=== PATIENT | female | born 1990 | race Caucasian/White ===

== ENCOUNTER 2016-11-18 18:46 | Inpatient (IN) | payer MEDICAID, OTHER ==
[~2016-11-18] VITALS: Ht 167.6 cm; Wt 86.2 kg
[2016-11-18 19:45] VITALS: BP 152/104; PULSE 90
[2016-11-18] MEDS ORDERED: ONDANSETRON HCL 4 MG/2 ML VIAL IV PRN (19:45)
[2016-11-18] MEDS ORDERED: NIFEdipine 10 MG CAP PO PRN ×3 (19:45→20:30)
[2016-11-18] MEDS ORDERED: MAGNESIUM SULFATE 4 GM PREMIX 100 ML IV ONE (19:45)
[2016-11-18] MEDS ORDERED: CALCIUM GLUCONATE 10% 1 GM/10 ML VIAL IV PUSH PRN (19:45)
[2016-11-18] MEDS ORDERED: SODIUM CHLORIDE 0.9% FLUSH 5 ML FLUSH IV PRN (19:45)
[2016-11-18 20:00] VITALS: BP 148/88; PULSE 91
[2016-11-18] MEDS: LABETALOL HCL 300 MG TAB PO SCH (20:00)
[2016-11-18] MEDS: LACTATED RINGER'S 1000 ML INJ 1,000 ML IV SCH (20:00)
[2016-11-18 20:17] VITALS: BP 131/68; PULSE 78
[2016-11-18 20:17] LABS: AUTOMATED NEUTROPHIL # 6.5 TH/MM3 (1.8-7.7); BASOPHIL % 0.3 % (0.0-2.0); EOSINOPHIL % 8.3 % (0.0-4.0); HEMATOCRIT 36.5 % (35.0-46.0); HEMO FLAGS DIFF FINAL; LYMPH % 28.5 % (9.0-44.0); LYMPHOCYTE # 3.3 TH/MM3 (1.0-4.8); MEAN CELL VOLUME 77.8 FL (80.0-100.0); MEAN CORPUSCULAR HEMOGLOBIN 25.9 PG (27.0-34.0); MEAN CORPUSCULAR HGB CONC 33.3 % (32.0-36.0); MONO % 6.7 % (0.0-8.0); NEUT % 56.2 % (16.0-70.0); PLATELET COUNT 219 TH/MM3 (150-450); RED BLOOD COUNT 4.69 MIL/MM3 (4.00-5.30); WHITE BLOOD COUNT 11.5 TH/MM3 (4.0-11.0)
[2016-11-18 20:32] LABS: ANION GAP 9 MEQ/L (5-15); AST (GOT) 13 U/L (15-37); BICARBONATE 22.1 MEQ/L (21.0-32.0); BLOOD UREA NITROGEN 8 MG/DL (7-18); CHLORIDE 108 MEQ/L (98-107); GLOMERULAR FILTRATION RATE 107 ML/MIN (>89); POTASSIUM 3.8 MEQ/L (3.5-5.1); SODIUM (NA) 139 MEQ/L (136-145); URIC ACID 6.2 MG/DL (2.6-6.0)
[2016-11-18 20:35] LABS: ALKALINE PHOSPHATASE 157 U/L (45-117); ALT (GPT) 17 U/L (10-53); TOTAL BILIRUBIN ADULT 0.2 MG/DL (0.2-1.0)
[2016-11-18] MEDS ORDERED: ACETAMINOPHEN 325 MG TAB PO PRN (20:45)
[2016-11-18 20:58] LABS: BACTERIA, URINE OCC /hpf; BLOOD, URINE NEG (NEG); COMMENT (UR) CULT NOT INDICATED; CULTURE IF INDICATED CULT NOT INDICATED; GLUCOSE,URINE NEG (NEG); HYALINE CAST, URINE 1 /lpf (RARE); KETONE, URINE NEG (NEG); MUCUS URINE FEW /lpf (OCC); NITRITE,URINE NEG (NEG); SQUAMOUS EPITHELIAL CELL URINE 2 /hpf (0-5); URINE COLOR LIGHT-YELLOW (YELLW/STRAW)
[2016-11-18] MEDS: SODIUM CHLORIDE 0.9% FLUSH 5 ML FLUSH IV SCH (21:00)
--- NOTE | 2016-11-18 21:09 | HHI.HP ---
HPI Chief Complaint Headaches, increased blood pressure, rule out preeclampsia Date Seen: Nov 18, 2016 Time Seen: 18:20 Travel History International Travel<30 Days: No Contact w/Intl Traveler<30Days: No Known Affected Area: No History of Present Illness HPI 26-year-old at 37 weeks and 5 days of gestation, EDC 12/04/16, patient was sent to labor and delivery by the customer sales consultant for evaluation of increased blood pressure noted in the office today and to rule out preeclampsia. Patient was seen in the office today by the customer sales consultant during which time blood pressure was noted to be 150/102, associated with severe headaches( pain score 8/10), patient denies blurry vision, visual disturbances, and epigastric pain. Patient denies cramping, contractions, leakage of fluids, vaginal bleeding. She reports presence of movements. care is with [facility] WOODWARD, course is significant for gestational hypertension and headaches. Evaluation in OB ED shows blood pressure 152/102, 149/109, 160/96, 15 . Patient complaining of headaches, denies blurry vision, and epigastric pain Para: 0 : 1 Miscarriage: 0 : 0 History Past Medical History Narrative Medical Denies Medical History: Denies Significant Hx Obstetric History Obstetric History Primigravida Past Surgical History Narrative Surgical Denies Family History Narrative Family History Mother with diabetes, father with hypertension. Social History Alcohol Use: No Tobacco Use: No Substance Abuse: No Allergies-Medications (Allergen,Severity, Reaction): Coded Allergies: No Known Allergies (Unverified , 11/18/16) Review of Systems Except as stated in HPI: all other systems reviewed are Neg HENT: Headaches Cardiovascular: Other (increased blood pressure) Physical Exam Narrative GENERAL: Well-nourished, well-developed patient. SKIN: Warm and dry. HEAD: Normocephalic and atraumatic. EYES: No scleral icterus. No injection or drainage. ENT: No nasal drainage noted. Mucous membranes pink. Airway patent. NECK: Supple, trachea midline. No JVD. CARDIOVASCULAR: Regular rate and rhythm without murmurs, gallops, or rubs. RESPIRATORY: Breath sounds equal bilaterally. No accessory muscle use. BREASTS: Bilateral exam showed no masses , no retractions, no nipple discharge. ABDOMEN/GI: Abdomen soft, gravid, non-tender, bowel sounds present, no rebound, no guarding Gravid to 38 weeks size Fundal Height: 38 cm GENITOURINARY: External Genitalia: intact and normal in appearance BUS glands: Normal Cervix: Fingertip, long, posterior Dilatation: Fingertip Effacement: 50% Station: -3 Presentation: Cephalic Membranes: Intact Uterine Contractions: None FHT's: Category: one Baseline: 150s Reactive: Yes Variability: Moderate Decels: None EXTREMITIES: No cyanosis or edema. BACK: Nontender without obvious deformity. No CVA tenderness. NEUROLOGICAL: Awake and alert. Motor and sensory grossly within normal limits. Five out of 5 muscle strength in all muscle groups. Normal speech. Data Data Vital Signs Reviewed: Yes Orders Place In Observation (11/18/16 ) Code Status (11/18/16 19:44) Vital Signs (Adult) Q5MX4,Q15MX4,Q30MX2,Q1H (11/18/16 19:44) Resp Pulse Oximetry (11/18/16 ) Activity Bed Rest (11/18/16 19:44) Intake + Output Q1H (11/18/16 19:44) ^ Notify Parameters (11/18/16 19:44) ^ Heart CONTINUOUS (11/18/16 19:44) Urinary Catheter Management RAMONA.Q8H (11/18/16 19:44) ^ Check Deep Tendon Reflexes Q1H (11/18/16 19:44) Lactated Ringer's 1000 Ml Inj (Lr 1000 M (11/18/16 20:00) Sodium Chloride 0.9% Flush (Ns Flush) (11/18/16 19:45) Sodium Chloride 0.9% Flush (Ns Flush) (11/18/16 21:00) Magnesium Sulfate 40 Gm Premix (Magnesiu (11/18/16 19:44) Nifedipine (Procardia) (11/18/16 19:45) Nifedipine (Procardia) (11/18/16 20:15) Nifedipine (Procardia) (11/18/16 20:30) Calcium Gluconate Inj (Calcium Gluconate (11/18/16 19:45) Ondansetron Inj (Zofran Inj) (11/18/16 19:45) Dxybmkdk-Ykj-Cmkzs-Iron Prenat (Stuartna (11/18/16 19:45) Comprehensive Metabolic Panel (11/18/16 19:44) Uric Acid (11/18/16 19:44) Total Protein 24hr Urine (11/18/16 19:44) Creatinine 24 Hr Urine (11/18/16 19:44) Magnesium Sulfate 4 Gm Premix (Magnesium (11/18/16 19:45) ^ Oil And Gas Superintendent / Telemetry (11/18/16 19:44) Complete Blood Count With Diff (11/18/16 19:48) Urinalysis - C+S If Indicated (11/18/16 19:48) Protein Creat Ratio, Random Ur (11/18/16 19:48) Ldh Serum (11/18/16 19:48) Labetalol (Trandate) (11/18/16 20:00) Ob (2e) Additional Admit Info (11/18/16 19:51) Equip, Iv Pump Triple Use Of (11/18/16 19:54) Acetaminophen (Tylenol) (11/18/16 20:45) Diet Regular Basic (11/18/16 Dinner) Labs Laboratory Tests Test 11/18/16 11/18/16 19:29 19:54 Urine Color LIGHT-YELLOW Urine Turbidity HAZY Urine pH 7.0 Urine Specific [place] 1.012 Urine Protein 30 Urine Glucose (UA) NEG Urine Ketones NEG Urine Occult Blood NEG Urine Nitrite NEG Urine Bilirubin NEG Urine Urobilinogen LESS THAN 2.0 Urine Leukocyte Esterase MOD Urine WBC 3 Urine Squamous Epithelial 2 Cells Urine Bacteria OCC Urine Hyaline Casts 1 Urine Mucus FEW Microscopic Urinalysis Comment CULT NOT INDICATED Urine Random Creatinine 61 Urine Random Total Protein 61 Urine Protein/Creatinine Ratio 1.00 White Blood Count 11.5 Red Blood Count 4.69 Hemoglobin 12.2 Hematocrit 36.5 Mean Corpuscular Volume 77.8 Mean Corpuscular Hemoglobin 25.9 Mean Corpuscular Hemoglobin 33.3 Concent Red Cell Distribution Width 16.0 Platelet Count 219 Mean Platelet Volume 10.0 Neutrophils (%) (Auto) 56.2 Lymphocytes (%) (Auto) 28.5 Monocytes (%) (Auto) 6.7 Eosinophils (%) (Auto) 8.3 Basophils (%) (Auto) 0.3 Neutrophils # (Auto) 6.5 Lymphocytes # (Auto) 3.3 Monocytes # (Auto) 0.8 Eosinophils # (Auto) 1.0 Basophils # (Auto) 0.0 CBC Comment DIFF FINAL Differential Comment Sodium Level 139 Potassium Level 3.8 Chloride Level 108 Carbon Dioxide Level 22.1 Anion Gap 9 Blood Urea Nitrogen 8 Creatinine 0.67 Estimat Glomerular Filtration 107 Rate Random Glucose 67 Uric Acid 6.2 Calcium Level 9.2 Total Bilirubin 0.2 Aspartate Amino Transf 13 (AST/SGOT) Alanine Aminotransferase 17 (ALT/SGPT) Alkaline Phosphatase 157 Lactate Dehydrogenase 157 Total Protein 6.6 Albumin 2.6 Assessment/Plan Problem List: (1) Pre-eclampsia in third trimester (2) Gestational hypertension affecting third Assessment and Plan Term at 37 weeks and 5 days of gestation with possible preeclampsia, reassuring heart status. GBS unknown. 1.Probable preeclampsia: * We'll start magnesium sulfate for seizure prophylaxis * Will treat blood pressure with antihypertensives * Wash for signs and symptoms of preeclampsia * Monitor blood pressure * We'll start collection of 24-hour urine for proteins and creatinine * Tylenol for headaches * Consider induction of labor if preeclampsia is confirmed by 24-hour urine 2. at 37 weeks plus. * Routine antepartum care * Continue vitamins Discharge Planning Will discharge when management is accomplished Brian Ortiz MD Nov 18, 2016 21:09
[2016-11-18] MEDS: MAGNESIUM SULFATE 40 GM PREMIX 1,000 ML IV SCH (21:10)
[2016-11-18 23:01] VITALS: BP 129/66; PULSE 78; RESP 18
[2016-11-19] VITALS (17 sets, daily range): BP systolic 107–159; BP diastolic 68–90; PULSE 72–100; RESP 18; TEMP 98.3–98.4
[2016-11-19] MEDS: LACTATED RINGER'S 1000 ML INJ 1,000 ML IV SCH ×2 (02:00→12:00)
[2016-11-19] MEDS: MULTIVIT/MIN/PREN/FOL AC/IRON PRENATAL TAB PO SCH (08:02)
[2016-11-19] MEDS: LABETALOL HCL 300 MG TAB PO SCH ×2 (08:02→20:00)
--- NOTE | 2016-11-19 10:19 | PD.LABORPN ---
Subjective Subjective 26-year-old at 37 weeks and 6 days of gestation, EDC 12/04/16, patient was sent to labor and delivery by the internet marketing executive for evaluation of increased blood pressure noted in the office today and to rule out preeclampsia. care is with [facility] WOODWARD, course is significant for gestational hypertension and headaches. Evaluation in OB ED shows blood pressure 152/102, 149/109, 160/96, 151/87. Patient complaining of headaches, denies blurry vision, and epigastric pain Monday 11/19: Random urine protein of 61 mg, protein/creatinine 1.0. With elevated pressures, meeting criteria for preeclampsia. Being at 37 weeks I would proceed with induction of labor. She continues to having light sensitivity , but denies any new headaches, CP, epigastric discomfort, decreased FM or vaginal bleeding. Objective Vital Signs Vital Signs Date Time Temp Pulse Resp B/P Pulse Ox O2 Delivery O2 Flow Rate FiO2 11/19/16 06:05 18 11/19/16 06:00 75 127/77 11/19/16 04:05 18 11/19/16 04:00 72 130/68 11/19/16 03:05 18 11/19/16 03:00 80 140/90 Objective Cervical Exam: As per OB tracvue documentation. [place]: Not titi on exam. Membranes: Intact FHT: Category 1. Assessment/Plan Problem List: (1) Pre-eclampsia in third trimester Plan: Magnesium started on 11/18/2016. Will continue until delivery of . Protein/Cr 1.0 (>0.3). Elevated BP x 2, more than 30 minutes apart. Induction of labor for preeclampsia without severe features. Plts: 219 ALT/AST: 17/13 Uric Acid: H 62 LDH: 157 24 hour urine pending Start with Cervidil x 12 hours followed by pitocin for augmentation of labor. Continuous FHTs and tocometry. (2) Gestational hypertension affecting third Plan: Monitor BP Continue with neurochecks q 1 hr. Brisk reflexes on exam. wdw. Carlo Calixto MD R2 Nov 19, 2016 10:19
[2016-11-19] MEDS ORDERED: LACTATED RINGER'S 1000 ML INJ 1,000 ML IV PRN (10:25)
[2016-11-19] MEDS ORDERED: SODIUM CHLORIDE 0.9% FLUSH 5 ML FLUSH IV FLUSH PRN (10:30)
[2016-11-19] MEDS ORDERED: SODIUM CHLORID 0.9% 500 ML INJ 500 ML IV PRN (10:30)
[2016-11-19] MEDS ORDERED: LIDOCAINE HCL 1% 50 ML VIAL I-DERMAL PRN (10:30)
[2016-11-19] MEDS ORDERED: DINOPROSTONE 10 MG VAG INSERT VAGINAL ONE (10:30)
[2016-11-19] MEDS ORDERED: SODIUM CHLORIDE 0.9% FLUSH 5 ML FLUSH IV FLUSH SCH (10:30)
[2016-11-19] MEDS ORDERED: CITRIC ACID-SODIUM CITRATE LIQ 30 ML UDC PO SCH (10:30)
[2016-11-19] MEDS ORDERED: PENICILLIN G POTASSIUM INJ 5,000,000 UNITS in SODIUM CHLORIDE 0.9% INJ 100 ML IV ONE ×2 (10:30→20:00)
[2016-11-19] MEDS ORDERED: OXYTOCIN 30 UNITS-500ML PREMIX 500 ML IV ONE (10:30)
[2016-11-19] MEDS ORDERED: MINERAL OIL 10 ML VIAL TOPICAL PRN (10:30)
[2016-11-19] MEDS ORDERED: LIDOCAINE HCL 1% 50 ML VIAL INFIL PRN (10:30)
[2016-11-19] MEDS ORDERED: SODIUM CHLOR 0.9% 1000 ML INJ 1,000 ML IV PRN (10:45)
[2016-11-19 11:46] LABS: AUTOMATED NEUTROPHIL # 8.2 TH/MM3 (1.8-7.7); BASOPHIL % 0.3 % (0.0-2.0); EOSINOPHIL # 0.5 TH/MM3 (0-0.4); EOSINOPHIL % 4.4 % (0.0-4.0); HEMATOCRIT 35.9 % (35.0-46.0); HEMO FLAGS DIFF FINAL; LYMPHOCYTE # 2.2 TH/MM3 (1.0-4.8); MEAN CELL VOLUME 77.3 FL (80.0-100.0); MEAN CORPUSCULAR HEMOGLOBIN 25.2 PG (27.0-34.0); MEAN CORPUSCULAR HGB CONC 32.6 % (32.0-36.0); MONO % 6.1 % (0.0-8.0); NEUT % 70.2 % (16.0-70.0); PLATELET COUNT 227 TH/MM3 (150-450); RED BLOOD COUNT 4.65 MIL/MM3 (4.00-5.30); RED CELL DISTRIBUTION WIDTH 15.5 % (11.6-17.2); WHITE BLOOD COUNT 11.6 TH/MM3 (4.0-11.0)
[2016-11-19] MEDS ORDERED: PENICILLIN G POTASSIUM INJ 2,500,000 UNITS in SODIUM CHLORIDE 0.9% INJ 100 ML IV SCH (14:00)
[2016-11-19] MEDS: MAGNESIUM SULFATE 40 GM PREMIX 1,000 ML IV SCH (16:35)
[2016-11-19] MEDS: SODIUM CHLORIDE 0.9% FLUSH 5 ML FLUSH IV SCH (21:00)
[2016-11-20] VITALS (47 sets, daily range): BP systolic 98–162; BP diastolic 55–118; PULSE 18–146; RESP 18; TEMP 97.7–98
[2016-11-20] MEDS ORDERED: PENICILLIN G POTASSIUM INJ 2,500,000 UNITS in SODIUM CHLORIDE 0.9% INJ 100 ML IV SCH ×2
[2016-11-20] MEDS: LACTATED RINGER'S 1000 ML INJ 1,000 ML IV SCH ×2 (02:25→13:17)
[2016-11-20 03:36] LABS: URINE TOTAL PROTEIN TIMED 10.8 MG/DL
[2016-11-20] MEDS ORDERED: PENICILLIN G POTASSIUM INJ 5,000,000 UNITS in SODIUM CHLORIDE 0.9% INJ 100 ML IV ONE (06:00)
[2016-11-20] MEDS ORDERED: OXYTOCIN 30 UNITS/NS 500ML PREMIX IV SCH (06:15)
[2016-11-20] MEDS: LABETALOL HCL 300 MG TAB PO SCH (08:10)
[2016-11-20] MEDS: MULTIVIT/MIN/PREN/FOL AC/IRON PRENATAL TAB PO SCH ×2 (09:40→10:16)
[2016-11-20] MEDS: PENICILLIN G POTASSIUM INJ 2,500,000 UNITS in SODIUM CHLORIDE 0.9% INJ 100 ML IV SCH ×2 (10:16→14:00)
--- NOTE | 2016-11-20 10:29 | PD.LABORPN ---
Subjective Subjective Patient with no major complaints she states she is starting to feel her contractions baby is active Objective Vital Signs Vital Signs Date Time Temp Pulse Resp B/P Pulse Ox O2 Delivery O2 Flow Rate FiO2 11/20/16 09:30 87 130/95 11/20/16 09:15 91 136/87 11/20/16 09:00 91 18 144/94 11/20/16 08:45 92 143/88 11/20/16 08:31 90 138/75 11/20/16 08:28 86 18 142/91 11/20/16 08:15 18 11/20/16 08:00 82 135/97 Objective Pelvic Exam: Cervix: [-] Midline Dilatation: [-] 2-3 cm Effacement: [-] 50% effaced Station: [-] -2 station Presentation: [-] Vertex Membranes: [ ruptured] artificial rupture membranes fluid is clear Uterine Contractions: [-] Irregular FHT's: Category: [-]1 Baseline: [-]130 Reactive: [-] + Variability: [-] Moderate vczt-xe-uchc variability Decels: [-] 0 Assessment/Plan Problem List: (1) Pre-eclampsia in third trimester Plan: Magnesium started on 11/18/2016. Will continue until delivery of . Protein/Cr 1.0 (>0.3). Elevated BP x 2, more than 30 minutes apart. Induction of labor for preeclampsia without severe features. Plts: 219 ALT/AST: 17/13 Uric Acid: H 62 LDH: 157 24 hour urine pending Start with Cervidil x 12 hours followed by pitocin for augmentation of labor. Continuous FHTs and tocometry. (2) Gestational hypertension affecting third Plan: Monitor BP Continue with neurochecks q 1 hr. Brisk reflexes on exam. wdw. Dr. Pichardo Assessment and Plan Early latent phase labor Induction for preeclampsia Plan discontinue present management Patient has been signed out to the on coming hospitalist Rosa Pichardo MD Nov 20, 2016 10:29
--- NOTE | 2016-11-20 11:04 | PD.LABORPN ---
Subjective Subjective Patient seen and examined both PT and with no major complaints. Cervidil was completed and Pitocin was started to augment labor. She endorses good movement. Objective Vital Signs Vital Signs Date Time Temp Pulse Resp B/P Pulse Ox O2 Delivery O2 Flow Rate FiO2 11/20/16 10:30 92 115/81 11/20/16 10:16 78 130/79 11/20/16 10:00 83 18 127/92 11/20/16 09:46 86 126/86 11/20/16 09:30 87 130/95 11/20/16 09:15 91 136/87 11/20/16 09:00 97.9 11/20/16 09:00 91 18 144/94 11/20/16 08:45 92 143/88 11/20/16 08:31 90 138/75 11/20/16 08:28 86 18 142/91 11/20/16 08:15 18 11/20/16 08:00 82 135/97 Objective Pelvic Exam: Cervix: Midline Dilatation: 2-3 cm Effacement: 50% effaced Station: -2 station Presentation: Vertex Membranes: AROM with clear fluid Uterine Contractions: Irregular FHT's: Category: 1 Baseline: 130 Reactive: [-] Variability: Moderate Decels: None Assessment/Plan Problem List: (1) Pre-eclampsia in third trimester Plan: Magnesium started on 11/18/2016. Will continue until delivery of infant. Protein/Cr 1.0 (>0.3). Elevated BP x 2, more than 30 minutes apart. Induction of labor for preeclampsia without severe features. Plts: 219 ALT/AST: 17/13 Uric Acid: H 62 LDH: 157 24 hour urine pending R Cervidil completed. Pitocin currently at 7 mEq per minute Continuous FHTs and tocometry. (2) Gestational hypertension affecting third Plan: Monitor BP Continue with neurochecks q 1 hr. Brisk reflexes on exam. SDW: Dr. Dunbar DW: Mumtaz Valiente MD R1 Nov 20, 2016 11:04
[2016-11-20] MEDS ORDERED: fentaNYL 2MCG-BUPIV 0.125% INJ 100 ML ONE (12:00)
[2016-11-20] MEDS ORDERED: DO NOT ADMINISTER ANTICOAGULANTS XX PRN (13:15)
[2016-11-20] MEDS ORDERED: ePHEDrine/NS 50 MG/5 ML SYR IV PRN (13:15)
[2016-11-20] MEDS ORDERED: fentaNYL 2MCG-BUPIV 0.125% INJ 100 ML EPIDURAL SCH (13:15)
[2016-11-20] MEDS ORDERED: NO SYSTEM NARCOTICS XX PRN (13:15)
[2016-11-20] MEDS ORDERED: MEASLES, MUMPS, RUBELLA VACCINE 0.5 ML VIAL SQ ONE (16:00)
[2016-11-20] MEDS ORDERED: DIPHTH/TETANUS/ACEL PERTUSSIS (BOOSTER) 0.5 ML VIAL/PFS IM ONE (16:00)
[2016-11-20] MEDS: MAGNESIUM SULFATE 40 GM PREMIX 1,000 ML IV SCH (17:21)
[2016-11-21] VITALS (19 sets, daily range): BP systolic 98–140; BP diastolic 63–95; PULSE 86–112; RESP 16–20; TEMP 98.5–98.8
[2016-11-21] MEDS ORDERED: DOCUSATE SODIUM 50 MG/SENNA 8.6 MG TAB PO PRN
[2016-11-21] MEDS ORDERED: ONDANSETRON ODT 4 MG TAB PO PRN
[2016-11-21] MEDS ORDERED: ZOLPIDEM TARTRATE 5 MG TAB PO PRN
[2016-11-21] MEDS ORDERED: ALUMINUM/MAGNESIUM/SIMETH 30 ML CUP PO PRN
[2016-11-21] MEDS ORDERED: ACETAMINOPHEN 325 MG TAB PO PRN
[2016-11-21] MEDS ORDERED: oxyCODONE/ACETAMINOPHEN 5 MG/325 MG TAB PO PRN
[2016-11-21] MEDS ORDERED: SODIUM CHLORIDE 0.9% FLUSH 5 ML FLUSH IV PRN
--- NOTE | 2016-11-21 00:05 | PD.OB.DELI ---
Delivery Date: Nov 20, 2016 Anesthesia: Epidural Episiotomy: Midline Vaginal Delivery: Normal, Spontaneous Presentation: Occiput posterior, Vertex Nuchal Cord: x1 Infant: Male One Minute : 4 Five Minute : 8 Weight: 2215 g, 5 lbs. 14 oz. Care: Suctioned, Spontaneous crying, Responded to stimulation, Blow-by O2 delivered, Transferred to nursery, Other (attended by nursery team) Placenta: Spontaneous delivery, Intact, 3 vessel cord Laceration: Episiotomy, 2 deg Repair: Vicryl interrupted, Vicryl running Additional Information 26-year-old G1 P 1001 status post vaginal vaginal delivery, patient presented at 37 weeks and 6 days of gestation with preeclampsia and possible IUGR.patient was admitted for induction of labor induction of labor. Patient received Cervidil for cervical ripening followed by Pitocin for augmentation of labor. She also received magnesium sulfate infusion for seizure prophylaxis. Patient progressed well in labor and subsequently attained a [place] dilated cervix, 100% effaced at +2 station. At this point the patient was encouraged to push, and the patient delivered a viable male infant from a direct occiput posterior position over a midline episiotomy with Apgars of 4 at 1 minute and 8 at 5 minutes. The head was delivered atraumatically, nuchal cord 1 was easily reduced, followed by delivery of the shoulders and the rest of the body at 23.18 hours. The cord was doubly clamped and cut and the baby was handed off to the nursery team. Placenta was delivered spontaneously with intact membranes and a three-vessel cord. Inspection of the canal revealed a midline episiotomy with second-degree extension, intact vagina, intact cervix and a firm uterine fundus. The midline episiotomy was repaired using 2-0 Vicryl and 3-0 Vicryl without complications. Baby's weight is 2215 g, 5 lbs. 14 oz., estimated blood loss is 400 mL. The patient tolerated the procedure well. All sponges, laps, needle and instrument counts were correct 2. The patient and the baby remained in the labor and delivery room in stable condition. The patient will continue with the magnesium sulfate infusion for seizure prophylaxis we will. We will continue to monitor blood pressures. At this time the patient denies headache, visual disturbances, blurry vision and epigastric pain. The patient did infant's weight is consistent with IUGR. Brian Ortiz MD Nov 21, 2016 00:05
[2016-11-21] MEDS ORDERED: GENTAMICIN SULFATE 80 MG/2 ML VIAL IV SCH (00:15)
[2016-11-21] MEDS ORDERED: PREN29TA PO (03:04)
[2016-11-21 06:33] LABS: BASOPHIL % 0.3 % (0.0-2.0); EOSINOPHIL # 0.1 TH/MM3 (0-0.4); EOSINOPHIL % 0.5 % (0.0-4.0); HEMATOCRIT 31.7 % (35.0-46.0); HEMO FLAGS DIFF FINAL; LYMPH % 11.5 % (9.0-44.0); LYMPHOCYTE # 1.9 TH/MM3 (1.0-4.8); MEAN CELL VOLUME 76.9 FL (80.0-100.0); MEAN CORPUSCULAR HEMOGLOBIN 25.4 PG (27.0-34.0); MONO % 7.1 % (0.0-8.0); NEUT % 80.6 % (16.0-70.0); PLATELET COUNT 215 TH/MM3 (150-450); RED BLOOD COUNT 4.12 MIL/MM3 (4.00-5.30); RED CELL DISTRIBUTION WIDTH 15.9 % (11.6-17.2); WHITE BLOOD COUNT 16.2 TH/MM3 (4.0-11.0)
[2016-11-21 07:12] LABS: CALCIUM-PROTEIN CORRECTED 7.9 MG/DL (8.5-10.1); MAGNESIUM 6.2 MG/DL (1.5-2.5); TOTAL BILIRUBIN ADULT 0.3 MG/DL (0.2-1.0)
[2016-11-21] MEDS: GENTAMICIN/SOD CHL 80 MG/100 ML IV SCH ×3 (08:00→15:22)
[2016-11-21] MEDS: LABETALOL HCL 300 MG TAB PO SCH (08:00)
[2016-11-21] MEDS: MULTIVIT/MIN/PREN/FOL AC/IRON PRENATAL TAB PO SCH (08:18)
[2016-11-21] MEDS: IBUPROFEN 600 MG TAB PO PRN ×3 (08:19→23:56)
[2016-11-21] MEDS: SODIUM CHLORIDE 0.9% FLUSH 5 ML FLUSH IV SCH ×2 (09:00)
[2016-11-21] MEDS ORDERED: MAGNESIUM SULFATE 40 GM PREMIX 1,000 ML ONE (10:26)
[2016-11-21] MEDS: AMPICILLIN INJ 2,000 MG in SODIUM CHLORIDE 0.9% INJ 100 ML IV SCH ×3 (15:22)
[2016-11-21] MEDS: BENZOCAINE 20% TOPICAL SPRAY 60 ML CAN TOPICAL PRN ×2 (19:50→23:57)
[2016-11-21] MEDS: WITCH HAZEL 50%/GLYCERIN 12.5% 40 PAD JAR TOPICAL PRN ×2 (19:50→23:57)
[2016-11-21] MEDS: oxyCODONE/ACETAMINOPHEN 5 MG/325 MG TAB PO PRN ×2 (19:50→23:56)
[2016-11-21] MEDS ORDERED: LABETALOL HCL 300 MG TAB PO PRN (20:00)
--- NOTE | 2016-11-22 07:11 | HHI.OB ---
Subjective Post Day: 2 Remarks 26 y/o G1 now P1 delivered via induced vaginal delivery at 37/6 weeks gestation for pre-eclampsia. S/p 24 hours of mag post delivery. Doing well. Pain is 4-5/10. She is ambulating and urinating without difficulty. No increase in lochia or vaginal bleeding. Eating without difficulty. Recorded BP have been 131 - 136 systolic, Diastolic < 90 consistently. No visual changes, chest pain, visual changes, or pain behind her legs. Objective Vitals/I&O Vital Signs Date Time Temp Pulse Resp B/P Pulse Ox O2 Delivery O2 Flow Rate FiO2 11/21/16 23:17 91 18 136/85 11/21/16 19:00 18 11/21/16 14:08 86 20 115/70 11/21/16 14:00 98.8 20 11/21/16 13:49 99 131/86 11/21/16 11:33 20 11/21/16 11:00 94 140/89 11/21/16 10:30 86 122/84 Objective Remarks GENERAL: Well-nourished, well-developed patient. CARDIOVASCULAR: Regular rate and rhythm without murmurs, gallops, or rubs. RESPIRATORY: Breath sounds equal bilaterally. No accessory muscle use. ABDOMEN/GI: Abdomen soft, non-tender. Fundus: Firm, non-tender at umbilicus. GENITOURINARY: Light to moderate bleeding. EXTREMITIES: No cyanosis or edema, non-tender, without signs of DVT. Medications and IVs Current Medications Medications (Trade) Dose Ordered Sig/Micheal Route Start Time Stop Time Status Last Admin (Stuartnatal Plus 3 ) 1 tab DAILY PO 11/18/16 19:45 11/21/16 08:18 (NS Flush) 2 ml BID IV 11/21/16 00:00 (NS Flush) 2 ml UNSCH PRN IV 11/21/16 00:00 (Tylenol) 650 mg Q4H PRN PO 11/21/16 00:00 (Motrin) 600 mg Q6H PRN PO 11/21/16 00:00 11/21/16 23:56 (Percocet 5-325 Mg) 1 tab Q4H PRN PO 11/21/16 00:00 11/21/16 23:56 (Percocet 5-325 Mg) 2 tab Q4H PRN PO 11/21/16 00:00 (Americaine 20% Top Spr) 1 spray Q4H PRN TOPICAL 11/21/16 00:00 11/21/16 23:57 (Tucks Pads) 1 applic QID PRN TOPICAL 11/21/16 00:00 11/21/16 23:57 (Mag-Colace) 2 tab Q12H PRN PO 11/21/16 00:00 (Ambien) 5 mg HS PRN PO 11/21/16 00:00 (Mag-Al Plus Susp Liq) 15 ml Q8H PRN PO 11/21/16 00:00 (Zofran Odt) 4 mg Q6H PRN PO 11/21/16 00:00 (Trandate) 300 mg Q12H PRN PO 11/21/16 20:00 Assessment/Plan Problem List: (1) Pre-eclampsia in third trimester Plan: Magnesium started on 11/18/2016. Will continue until delivery of . Protein/Cr 1.0 (>0.3). Elevated BP x 2, more than 30 minutes apart. Induction of labor for preeclampsia without severe features. Plts: 219 ALT/AST: 17/13 Uric Acid: H 62 LDH: 157 24 hour urine pending R Cervidil completed. Pitocin currently at 7 mEq per minute Continuous FHTs and tocometry. (2) Gestational hypertension affecting third Plan: Monitor BP Continue with neurochecks q 1 hr. Brisk reflexes on exam. SDW: Dr. Dunbar DW: Dr. Dunham Assessment and Plan 26 y/o G1 now P1 PPD # 2 - Vaginal Delivery for pre-eclampsia. Magnesium stopped 24 hr post at 20:00 on 11/21. Post Day # 2 Continue routine post care Motrin PRN pain BP at goal no signs of pre-eclampsia Ambulating without difficulty Will follow up with OB provider in 1 week. D/c: Likely d/c today 11/22. wdw Dr. Kathy Dunham. Discharge Planning Will discharge when management is accomplished Carlo Dunbar MD R2 Nov 22, 2016 07:11
[2016-11-22] MEDS ORDERED: IBUP-232 PO (07:17)
[2016-11-22] MEDS: IBUPROFEN 600 MG TAB PO PRN ×3 (07:17→19:30)
[2016-11-22] MEDS ORDERED: SENN1TAB PO (07:17)
--- NOTE | 2016-11-22 07:18 | HHI.DCPOC ---
Discharge Care Plan Report Symptoms to Your Doctor -Temperate above 100.5 degrees -Redness, of incision or excessive or foul smelling drainage -Unusual pain or calf pain -Increased vaginal bleeding -Painful or difficulty urinating -Feelings of extreme sadness or anxiety after 2 weeks Goals to Promote Your Health * To prevent worsening of your condition and complications * To maintain your health at the optimal level Directions to Meet Your Goals Take your medications as prescribed Follow your dietary instruction Follow activity as directed Ensure plenty of rest for recovery Drink fluids for hydration Keep your appointments as scheduled Take your immunizations and boosters as scheduled If your symptoms worsen call your PCP, if no PCP go to Urgent Care Center or Emergency Room Smoking is Dangerous to Your Health. Avoid second hand smoke Call the 24-hour crisis hotline for domestic abuse at Carlo Dunbar MD R2 Nov 22, 2016 07:18
[2016-11-22 08:00] VITALS: BP 144/87; PULSE 98; RESP 18; TEMP 98.8
[2016-11-22] MEDS: MULTIVIT/MIN/PREN/FOL AC/IRON PRENATAL TAB PO SCH (12:45)
[2016-11-22] MEDS ORDERED: NIFEdipine 30 MG SUSTAINED RELEASE TAB PO ONE (12:45)
[2016-11-22] MEDS: BENZOCAINE 20% TOPICAL SPRAY 60 ML CAN TOPICAL PRN (12:46)
[2016-11-22] MEDS: WITCH HAZEL 50%/GLYCERIN 12.5% 40 PAD JAR TOPICAL PRN (12:46)
[2016-11-22] MEDS: LABETALOL HCL 200 MG TAB PO SCH (18:03)
[2016-11-22] MEDS: oxyCODONE/ACETAMINOPHEN 5 MG/325 MG TAB PO PRN (19:30)
[2016-11-23] MEDS: LABETALOL HCL 200 MG TAB PO SCH ×2 (02:06→09:05)
[2016-11-23] MEDS: IBUPROFEN 600 MG TAB PO PRN ×2 (02:09→09:05)
[2016-11-23] MEDS: MULTIVIT/MIN/PREN/FOL AC/IRON PRENATAL TAB PO SCH (09:05)
[2016-11-23] MEDS ORDERED: INFLUENZA VIRUS VACCINE (QUADRIVALENT) 0.5 ML SYR IM ONE (10:00)
[2016-11-23] MEDS ORDERED: LABE200T2 PO (12:27)
[2016-11-23] MEDS: BENZOCAINE 20% TOPICAL SPRAY 60 ML CAN TOPICAL PRN (12:33)
[2016-11-23] MEDS: WITCH HAZEL 50%/GLYCERIN 12.5% 40 PAD JAR TOPICAL PRN (12:33)
--- NOTE | 2016-11-23 12:48 | HHI.OB ---
Subjective Post Day: 3 Remarks History and discharge instructions conducted through office clerk routine 26 year old female s/p IVD due to preeclampsia at 38/0 wks gestation, PPD 3. Elevated BP overnight but only received 2 doses of labetalol, this morning blood pressure is much improved. While signs otherwise WNL. Patient reports she is feeling well. Bleeding is decreasing and pain is well-controlled. She is formula feeding and bonding well with baby. Ambulating without difficulties. She is tolerating a diet without nausea or vomiting. Denies chest pain, dysuria, shortness of breath, or calf pain. Objective Objective Remarks GENERAL: Well-nourished, well-developed patient. CARDIOVASCULAR: Regular rate and rhythm without murmurs, gallops, or rubs. RESPIRATORY: Breath sounds equal bilaterally. No accessory muscle use. ABDOMEN/GI: Abdomen soft, non-tender. Fundus: Firm, non-tender at umbilicus. GENITOURINARY: Light to moderate bleeding. EXTREMITIES: No cyanosis or edema, non-tender, without signs of DVT. Medications and IVs Current Medications Medications (Trade) Dose Ordered Sig/Micheal Route Start Time Stop Time Status Last Admin (Stuartnatal Plus 3 ) 1 tab DAILY PO 11/18/16 19:45 11/23/16 09:05 (NS Flush) 2 ml BID IV 11/21/16 00:00 (NS Flush) 2 ml UNSCH PRN IV 11/21/16 00:00 (Tylenol) 650 mg Q4H PRN PO 11/21/16 00:00 (Motrin) 600 mg Q6H PRN PO 11/21/16 00:00 11/23/16 09:05 (Percocet 5-325 Mg) 1 tab Q4H PRN PO 11/21/16 00:00 11/22/16 19:30 (Percocet 5-325 Mg) 2 tab Q4H PRN PO 11/21/16 00:00 11/22/16 07:17 (Americaine 20% Top Spr) 1 spray Q4H PRN TOPICAL 11/21/16 00:00 11/23/16 12:33 (Tucks Pads) 1 applic QID PRN TOPICAL 11/21/16 00:00 11/23/16 12:33 (Mag-Colace) 2 tab Q12H PRN PO 11/21/16 00:00 (Ambien) 5 mg HS PRN PO 11/21/16 00:00 11/23/16 02:09 (Mag-Al Plus Susp Liq) 15 ml Q8H PRN PO 11/21/16 00:00 (Zofran Odt) 4 mg Q6H PRN PO 11/21/16 00:00 (Trandate) 200 mg Q8H PO 11/22/16 17:00 11/23/16 09:05 Assessment/Plan Problem List: (1) Pre-eclampsia in third trimester (2) Gestational hypertension affecting third Assessment and Plan 26 y/o PPD # 3 - Vaginal Delivery for pre-eclampsia. Magnesium stopped 24 hr post at 20:00 on 11/21. - Elevated BP overnight but much improved this morning during the day. Vital signs otherwise WNL - Continue routine care - Motrin and Percocet PRN pain - Encourage OOB - Pelvic rest x 6 wks. - Contraception: Options discussed, would like Depo-Provera - Anticipate D/C today. Recommended patient follow-up with M.D. physician within one week for control of blood pressure. Patient is already scheduled to follow up with experimental physicist but understands the importance of also following up with a physician as she may need medication adjustments for blood pressure. Patient was extensively counseled about the importance of increased blood pressures and the risk of not taking medication or having an appropriate follow-up. Patient expressed understanding and all of this was translated through a certified office clerk routine. rox [place] Discharge Planning Will discharge when management is accomplished Nenita Garrett MD R2 Nov 23, 2016 12:48
== END 2016-11-23 13:11 | disposition home or self-care (01) | DRG 775 ==
LOC: HOBED 18:46 → H2EA 19:53 → UNDOADMOB 19:53 → OBSVTOIN 11-19 10:39 → INTOOBSV 11-19 10:39 → OBSVTOIN 11-19 12:12 → H2EB 11-19 12:12 → H2EA 11-21 02:15 → H1EA 11-21 23:34 → UNDODISIN 11-22 15:42
PROVIDERS: ADMIT Obstetrics & Gynecology; ATTEND Obstetrics & Gynecology
PROC: 3E0P7GC Introduction of Other Therapeutic Substance into Female Reproductive, Via Natural or Artificial Opening (ICD-10-PCS; 2016-11-19)
PROC: 10E0XZZ Delivery of Products of Conception, External Approach (ICD-10-PCS; principal; 2016-11-20)
PROC: 0W8NXZZ Division of Female Perineum, External Approach (ICD-10-PCS; 2016-11-20)
PROC: 00HU33Z Insertion of Infusion Device into Spinal Canal, Percutaneous Approach (ICD-10-PCS; 2016-11-20)
PROC: 3E0R3CZ (ICD-10-PCS; 2016-11-20)
DX: O14.94 Unspecified pre-eclampsia, complicating childbirth (principal); O36.5930 Maternal care for other known or suspected poor fetal growth, third trimester, not applicable or unspecified; O69.81X0 Labor and delivery complicated by cord around neck, without compression, not applicable or unspecified; O13.4 Gestational [pregnancy-induced] hypertension without significant proteinuria, complicating childbirth; Z23 Encounter for immunization; Z3A.37 37 weeks gestation of pregnancy; Z37.0 Single live birth
CPT/HCPCS: 76805; 76819; 76820; 76821; 80053; 81001; 82570; 83615; 83735; 84156; 84157; 84550; 85025; 86900; 86901; 88307; 90686; 90715; 99285; J0290; J1580; J2405; J2540; J2590; J3010; J3475; J7120; Q2038

== ENCOUNTER 2016-12-06 13:12 | Emergency (ER) | payer MEDICAID, OTHER ==
[~2016-12-06] VITALS: Ht 167.6 cm; Wt 81.5 kg
[~2016-12-06 13:12] MED LIST: IBUP-232 PO; LABE200T2 PO; PREN29TA PO; SENN1TAB PO
[2016-12-06 13:18] VITALS: BP 142/96; PULSE 87; RESP 17; TEMP 98.4; O2SAT 98
--- NOTE | 2016-12-06 13:57 | PD ---
HPI Chief Complaint: Can Sealer Problem/Complaint Time Seen by Provider: 13:55 Travel History International Travel<30 days: No Contact w/Intl Traveler<30days: No Traveled to known affect area: No History of Present Illness HPI 26-year-old female presents to the emergency department for evaluation of possible having bowel movements through her stitches from having a baby on November 20. Patient is Sami-speaking and history and physical were done with the official tutor coordinator. The patient states that she started having these issues immediately after , but did not say anything. She has not followed up with Dr. Mckeon. Patient states that her stitches have been painful. She denies any pain at this time, but states they were very painful yesterday. The patient reports a history of preeclampsia and is currently on labetalol. She denies any fevers or chills. She has no other medical problems. [facility] Social History Alcohol Use: No Tobacco Use: No Substance Use: No Allergies-Medications (Allergen,Severity, Reaction): Coded Allergies: No Known Allergies (Unverified , 12/06/16) Reported Meds & Prescriptions Reported Meds & Active Scripts Active Labetalol (Labetalol HCl) 200 Mg Tab 200 Mg PO Q8H Senna Plus 8.6-50 mg (Sennosides-Docusate Sodium) 1 Tab Tab 2 Tab PO Q12H PRN Ibuprofen 600 Mg Tab 600 Mg PO Q6H PRN Review of Systems Except as stated in HPI: all other systems reviewed are Neg Physical Exam Narrative GENERAL: Well-developed well-nourished female patient, ambulatory. Afebrile. SKIN: Warm and dry. HEAD: Normocephalic. Atraumatic. EYES: No scleral icterus. No injection or drainage. NECK: Supple, trachea midline. No JVD or lymphadenopathy. CARDIOVASCULAR: Regular rate and rhythm without murmurs, gallops, or rubs. RESPIRATORY: Breath sounds equal bilaterally. No accessory muscle use. Lungs sounds clear to auscultation. GASTROINTESTINAL: Abdomen soft, non-tender, nondistended. MUSCULOSKELETAL: No cyanosis, or edema. BACK: Nontender without obvious deformity. No CVA tenderness. GENITOURINARY: Normal external genitalia without lesions or erythema. Vaginal vault with brown vaginal discharge. Cervical os was closed. No cervical motion tenderness. Uterus nontender and nonenlarged. Bilateral adnexa nontender without masses. Pelvic exam was done with RN at bedside. Data Data Last Documented VS Vital Signs Date Time Temp Pulse Resp B/P Pulse Ox O2 Delivery O2 Flow Rate FiO2 12/06/16 13:45 82 16 12/06/16 13:18 98.4 142/96 98 Orders Wet Prep Profile (12/06/16 15:29) Labs Laboratory Tests Test 12/06/16 15:30 Clue Cells (Wet Prep) NONE SEEN Vaginal Trichomonas (Wet Prep) NONE SEEN Vaginal Yeast (Wet Prep) NONE SEEN MDM Medical Decision Making Medical Screen Exam Complete: Yes Emergency Medical Condition: Yes Medical Record Reviewed: Yes Differential Diagnosis Fistula versus dehiscence versus UTI Narrative Course 26-year-old female presents to the emergency department for complains of having bowel movements through her incisional area to her vagina after having a baby on November 20. Rectovaginal exam were completed which did not show any evidence of fistula. This was done with the nurse at bedside. Speculum exam does reveal brown vaginal discharge, but no evidence of stool. Rectal exam shows hard stool. I urged the patient to follow-up with her dance hall host/hostess, Dr. Mckeon. Wet prep is negative. Patient is stable for discharge. Diagnosis Primary Impression: Suture check Referrals: Client Technical Specialist call for appointment Patient Instructions: General Instructions, Vaginitis (ED) Additional Instructions: There is no evidence of a fistula on today's visit. Follow-up with your dance hall host/hostess. Return to the emergency department for any acute worsening of symptoms. Med/Other Pt SpecificInfo: No Change to Meds Disposition: 01 DISCHARGE HOME Condition: Stable LinoCarolyn ARNP Dec 06, 2016 13:57
== END 2016-12-06 16:26 | disposition home or self-care (01) ==
LOC: NEPE 13:12
DX: N76.0 Acute vaginitis (principal)
CPT/HCPCS: 87210; 99283

== ENCOUNTER 2016-12-22 17:13 | Emergency (ER) | payer SELFPAY ==
[~2016-12-22] VITALS: Ht 167.6 cm; Wt 80.0 kg
[~2016-12-22 17:13] MED LIST changes: -PREN29TA PO
[2016-12-22 17:15] VITALS: BP 138/97; PULSE 97; RESP 15; TEMP 98.3; O2SAT 98
[2016-12-23] MEDS ORDERED: NAPR500 PO (13:13)
[2016-12-23] MEDS ORDERED: COLA100C3 PO (13:13)
== END 2016-12-22 22:05 | disposition left against medical advice (07) ==
LOC: NED 17:13
DX: G89.18 Other acute postprocedural pain (principal)
CPT/HCPCS: 99281

== ENCOUNTER 2016-12-23 11:04 | Emergency (ER) | payer MEDICAID, OTHER ==
[~2016-12-23] VITALS: Ht 160 cm; Wt 100.0 kg
[2016-12-23 11:05] VITALS: BP 135/90; PULSE 80; RESP 12; TEMP 98.1; O2SAT 98
[2016-12-23] MEDS ORDERED: NAPR500 PO (13:13)
[2016-12-23] MEDS ORDERED: COLA100C3 PO (13:13)
--- NOTE | 2016-12-23 13:16 | PD ---
HPI Chief Complaint: Quiller Tender Problem/Complaint Time Seen by Provider: 11:50 Travel History International Travel<30 days: No Contact w/Intl Traveler<30days: No Traveled to known affect area: No History of Present Illness HPI 26 year-old woman, status post vaginal delivery on November 20, with episiotomy and second-degree tear, repaired, who is concerned because she's been having feculent discharge from her vagina. She was seen in the emergency department once a week or 2 ago for similar symptoms. She states she still has pooped coming from her vagina, is having worsening pain whenever she goes to urinate or defecate. History Past Medical History Narrative Medical Preeclampsia and hypertension with her recent Medical History: Denies Significant Hx : 1 Para: 1 Social History Alcohol Use: No Tobacco Use: No Allergies-Medications (Allergen,Severity, Reaction): Coded Allergies: No Known Allergies (Unverified , 12/06/16) Reported Meds & Prescriptions Reported Meds & Active Scripts Active Labetalol (Labetalol HCl) 200 Mg Tab 200 Mg PO Q8H Senna Plus 8.6-50 mg (Sennosides-Docusate Sodium) 1 Tab Tab 2 Tab PO Q12H PRN Ibuprofen 600 Mg Tab 600 Mg PO Q6H PRN Review of Systems Except as stated in HPI: all other systems reviewed are Neg Physical Exam Narrative GENERAL: Well-appearing 26-year-old woman, no acute distress. SKIN: Warm and dry. CARDIOVASCULAR: Regular rate and rhythm. No murmur appreciated. RESPIRATORY: No accessory muscle use. Clear to auscultation. Breath sounds equal bilaterally. GASTROINTESTINAL: Abdomen soft, non-tender, nondistended. Hepatic and splenic margins not palpable. : Grossly normal. 0 sternal female genitalia. Is a lot of inflammation and irritation inside the vagina. Cervix is normal-appearing. There is a loose thread that appears to be a piece of suture the tendon vagina as well. There is a lot of scar tissue in bulky induration in the posterior aspect of the vagina. This outside recommended a small punctate area of skin tear that may be a fistula. On rectal exam I can feel some abnormality to the anterior aspect of the rectal wall. No obvious fistulas. Data Data Last Documented VS Vital Signs Date Time Temp Pulse Resp B/P Pulse Ox O2 Delivery O2 Flow Rate FiO2 12/23/16 11:05 98.1 80 12 135/90 98 Room Air [facility] Medical Decision Making Medical Screen Exam Complete: Yes Emergency Medical Condition: Yes Differential Diagnosis rectovaginal fistula, endometritis, other Narrative Course Medical decision making 26-year-old woman with feculent discharge from her vagina following a repair of an episiotomy. She may have a fistula. She looks overall well. Spoke with [facility] hospitals. They recommended referral to the on-call blood donor unit assistant, stool softeners. Diagnosis Primary Impression: Rectovaginal fistula Referrals: Zohra Clark MD 1 week Additional Instructions: Follow-up with the on-call blood donor unit assistant. Take Naprosyn as prescribed for pain. Take Colace as prescribed. Med/Other Pt SpecificInfo: Prescription(s) given Scripts Naproxen (Naprosyn)500 Mg Pld600 Mg PO BID PRN (PAIN SCALE 1 TO 10) #20 TAB Prov:Vito Pinedo MD 12/23/16 Docusate Sodium (Colace)100 Mg Cap2 Tab PO BID #60 CAP Ref 0 Prov:Vito Pinedo MD 12/23/16 Disposition: 01 DISCHARGE HOME Condition: Stable Vito Pinedo MD Dec 23, 2016 13:16
--- NOTE | 2016-12-23 13:17 | PD ---
Data Data Last Documented VS Vital Signs Date Time Temp Pulse Resp B/P Pulse Ox O2 Delivery O2 Flow Rate FiO2 12/23/16 11:05 98.1 80 12 135/90 98 Room Air Orders Mandatory Outpatient Referral (12/23/16 13:13) MDM Supervised Visit with VENANCIO: No Diagnosis Primary Impression: Rectovaginal fistula Referrals: Carolyn Feliciano MD 1 week Additional Instruction: Follow-up with the on-call dairy helper. Take Naprosyn as prescribed for pain. Take Colace as prescribed. Scripts Naproxen (Naprosyn)500 Mg [id number] Mg PO BID PRN (PAIN SCALE 1 TO 10) #20 TAB Prov:Vito Pinedo MD 12/23/16 Docusate Sodium (Colace)100 Mg Cap2 Tab PO BID #60 CAP Ref 0 Prov:Vito Pinedo MD 12/23/16 Disposition: 01 DISCHARGE HOME Condition: Stable Vito Pinedo MD Dec 23, 2016 13:17
== END 2016-12-23 13:50 | disposition home or self-care (01) ==
LOC: NEPA 11:04
DX: N82.3 Fistula of vagina to large intestine (principal)
CPT/HCPCS: 99283

== ENCOUNTER 2017-03-05 17:47 | Emergency (ER) | payer MEDICAID, OTHER ==
[~2017-03-05 17:47] MED LIST changes: +COLA100C3 PO; +NAPR500 PO
[2017-03-05 17:50] VITALS: BP 149/95; PULSE 97; RESP 20; TEMP 98.5; O2SAT 99
--- NOTE | 2017-03-05 18:53 | PD ---
Physical Exam Time Seen by Provider: 18:46 Narrative 26yo F c/o AARON and chest pain for 1 week. Denies SOB. Seen by CRISSY Patterson today and told to f/u with heel room supervisor. Patient 3 months post and had pre-eclampsia at 35-36 weeks. Nausea today. Denies fever. VSS. Patient seen in triage. Awaiting bed placement. Data Data Last Documented VS Vital Signs Date Time Temp Pulse Resp B/P Pulse Ox O2 Delivery O2 Flow Rate FiO2 03/05/17 17:50 98.5 97 20 149/95 99 Room Air MDM Supervised Visit with VENANCIO: Aditi Beavers Mar 05, 2017 18:53
[2017-03-05] MEDS ORDERED: SODIUM CHLOR 0.9% 1000 ML INJ 1,000 ML IV ONE (20:44)
[2017-03-05 20:45] VITALS: BP 128/89; PULSE 84; RESP 18; O2SAT 100
[2017-03-05] MEDS ORDERED: diphenhydrAMINE HCL 50 MG/ML VIAL IVP ONE (20:45)
[2017-03-05] MEDS ORDERED: PROCHLORPERAZINE INJ 10 MG/2 ML VIAL IVP ONE (20:45)
[2017-03-05] MEDS ORDERED: SODIUM CHLORIDE 0.9% FLUSH 10 ML FLUSH IVF PRN (20:45)
--- NOTE | 2017-03-05 20:47 | PD ---
HPI Chief Complaint: Hypertension Time Seen by Provider: 20:16 Travel History International Travel<30 days: No Contact w/Intl Traveler<30days: No Traveled to known affect area: No History of Present Illness HPI Patient 26-year-old female presents emergency Department with complaints of headache left lower quadrant abdominal pain as well as high blood pressure for the past 3-1/2 months. Patient states that she went to her GSA COORDINATOR's today and was told that her blood pressure was high and was sent to a social media campaign manager for follow-up. Patient states she could not go to a social media campaign manager and decided to come to the emergency department instead. Patient does have a history of preeclampsia during . She delivered 3-1/2 months ago. Denies any leg swelling visual changes. She states nothing else changed as far as her symptoms she just needed to be seen and evaluated. She also endorses some mild left-sided chest pain. History is somewhat limited by patient is a [place] speaker. Children Teacher service was used. [facility] Past Medical History Cardiovascular Problems: Yes (PREECLAMPSIA) Diminished Hearing: No ?: Not : 1 Para: 1 Miscarriage: 0 : 0 Past Surgical History Gynecologic Surgery: Yes (VAGINAL WITH STITCH REPAIR. ) Social History Alcohol Use: No Tobacco Use: No Substance Use: No Allergies-Medications (Allergen,Severity, Reaction): Coded Allergies: No Known Allergies (Unverified , 03/05/17) Reported Meds & Prescriptions Reported Meds & Active Scripts Active Review of Systems Except as stated in HPI: all other systems reviewed are Neg Physical Exam Narrative GENERAL: Well-developed well-nourished no apparent distress. SKIN: Focused skin assessment warm/dry. HEAD: Atraumatic. Normocephalic. EYES: Pupils equal and round. No scleral icterus. No injection or drainage. ENT: No nasal bleeding or discharge. Mucous membranes pink and moist. NECK: Trachea midline. No JVD. CARDIOVASCULAR: Regular rate and rhythm. No murmur appreciated. RESPIRATORY: No accessory muscle use. Clear to auscultation. Breath sounds equal bilaterally. GASTROINTESTINAL: Abdomen soft, non-tender, nondistended. Hepatic and splenic margins not palpable. MUSCULOSKELETAL: No obvious deformities. No clubbing. No cyanosis. No edema. NEUROLOGICAL: Awake and alert. No obvious cranial nerve deficits. Motor grossly within normal limits. Normal speech. PSYCHIATRIC: Appropriate mood and affect; insight and judgment normal. Data Data Last Documented VS Vital Signs Date Time Temp Pulse Resp B/P Pulse Ox O2 Delivery O2 Flow Rate FiO2 03/05/17 21:12 18 98 Room Air 03/05/17 20:45 84 128/89 03/05/17 17:50 98.5 Orders Electrocardiogram (03/05/17 18:53) Complete Blood Count With Diff (03/05/17 20:44) Comprehensive Metabolic Panel (03/05/17 20:44) Ecg Monitoring (03/05/17 20:44) Iv Access Insert/Monitor (03/05/17 20:44) Oximetry (03/05/17 20:44) Sodium Chloride 0.9% Flush (Ns Flush) (03/05/17 20:45) Prochlorperazine Inj (Compazine Inj) (03/05/17 20:45) Diphenhydramine Inj (Benadryl Inj) (03/05/17 20:45) Sodium Chlor 0.9% 1000 Ml Inj (Ns 1000 M (03/05/17 20:44) Urinalysis - C+S If Indicated (03/05/17 20:44) Ed Urine Pregnancytest Poc (03/05/17 20:44) Urine Culture (03/05/17 21:35) Labs Laboratory Tests Test 03/05/17 03/05/17 21:05 21:35 White Blood Count 10.0 TH/MM3 Red Blood Count 5.26 MIL/MM3 Hemoglobin 13.6 GM/DL Hematocrit 40.4 % Mean Corpuscular Volume 76.8 FL Mean Corpuscular Hemoglobin 25.8 PG Mean Corpuscular Hemoglobin 33.6 % Concent Red Cell Distribution Width 14.2 % Platelet Count 315 TH/MM3 Mean Platelet Volume 9.0 FL Neutrophils (%) (Auto) 42.9 % Lymphocytes (%) (Auto) 42.2 % Monocytes (%) (Auto) 5.9 % Eosinophils (%) (Auto) 8.5 % Basophils (%) (Auto) 0.5 % Neutrophils # (Auto) 4.3 TH/MM3 Lymphocytes # (Auto) 4.2 TH/MM3 Monocytes # (Auto) 0.6 TH/MM3 Eosinophils # (Auto) 0.9 TH/MM3 Basophils # (Auto) 0.1 TH/MM3 CBC Comment DIFF FINAL Differential Comment Sodium Level 139 MEQ/L Potassium Level 3.6 MEQ/L Chloride Level 104 MEQ/L Carbon Dioxide Level 26.8 MEQ/L Anion Gap 8 MEQ/L Blood Urea Nitrogen 11 MG/DL Creatinine 0.82 MG/DL Estimat Glomerular Filtration 85 ML/MIN Rate Random Glucose 97 MG/DL Calcium Level 9.3 MG/DL Total Bilirubin 0.2 MG/DL Aspartate Amino Transf 25 U/L (AST/SGOT) Alanine Aminotransferase 44 U/L (ALT/SGPT) Alkaline Phosphatase 79 U/L Total Protein 7.8 GM/DL Albumin 3.9 GM/DL Urine Color LIGHT-YELLOW Urine Turbidity CLEAR Urine pH 6.0 Urine Specific [place] 1.014 Urine Protein NEG mg/dL Urine Glucose (UA) NEG mg/dL Urine Ketones NEG mg/dL Urine Occult Blood NEG Urine Nitrite NEG Urine Bilirubin NEG Urine Urobilinogen LESS THAN 2.0 MG/DL Urine Leukocyte Esterase LARGE Urine RBC 1 /hpf Urine WBC 9 /hpf Urine Squamous Epithelial 1 /hpf Cells Urine Mucus FEW /lpf Microscopic Urinalysis Comment CULTURE INDICATED MDM Medical Decision Making Medical Screen Exam Complete: Yes Emergency Medical Condition: Yes Differential Diagnosis Elevated blood pressure, headache, abdominal cramping, . Narrative Course Patient was roomed emergency department, history is obtained through billet shearer service and she was counseled through the billet shearer service. Her blood pressures actually within normal limits on arrival. She has no sign symptoms for preeclampsia and is more than 3 months at this time. Basic labs are obtained are within normal limits, EKG within normal limits. CT head is not indicated at this time. Patient was given Benadryl and Compazine and she is not breast-feeding. On reassessment she states she is feeling 100% better. I discussed with her need follow-up the primary care physician or social media campaign manager for ongoing evaluation of her high blood pressure. She is stable for discharge at this time per Diagnosis Primary Impression: Headache Qualified Code: R51 - Nonintractable headache, unspecified chronicity pattern , unspecified headache type Additional Impression: Hypertension Referrals: Jhon Huang MD Disposition: 01 DISCHARGE HOME Condition: Stable Juan Thomas MD Mar 05, 2017 20:47
[2017-03-05 21:12] VITALS: RESP 18; O2SAT 98
[2017-03-05 21:41] LABS: AUTOMATED NEUTROPHIL # 4.3 TH/MM3 (1.8-7.7); BASOPHIL # 0.1 TH/MM3 (0-0.2); BASOPHIL % 0.5 % (0.0-2.0); EOSINOPHIL # 0.9 TH/MM3 (0-0.4); EOSINOPHIL % 8.5 % (0.0-4.0); HEMATOCRIT 40.4 % (35.0-46.0); HEMO FLAGS DIFF FINAL; LYMPH % 42.2 % (9.0-44.0); LYMPHOCYTE # 4.2 TH/MM3 (1.0-4.8); MEAN CELL VOLUME 76.8 FL (80.0-100.0); MEAN CORPUSCULAR HEMOGLOBIN 25.8 PG (27.0-34.0); MEAN CORPUSCULAR HGB CONC 33.6 % (32.0-36.0); MONO % 5.9 % (0.0-8.0); NEUT % 42.9 % (16.0-70.0); PLATELET COUNT 315 TH/MM3 (150-450); RED BLOOD COUNT 5.26 MIL/MM3 (4.00-5.30); RED CELL DISTRIBUTION WIDTH 14.2 % (11.6-17.2)
[2017-03-05 22:05] LABS: BLOOD, URINE NEG (NEG); COMMENT (UR) CULTURE INDICATED; CULTURE IF INDICATED CULTURE INDICATED; GLUCOSE,URINE NEG (NEG); KETONE, URINE NEG (NEG); MUCUS URINE FEW /lpf (OCC); NITRITE,URINE NEG (NEG); SQUAMOUS EPITHELIAL CELL URINE 1 /hpf (0-5); URINE COLOR LIGHT-YELLOW (YELLW/STRAW)
[2017-03-05 22:20] LABS: ALKALINE PHOSPHATASE 79 U/L (45-117); ALT (GPT) 44 U/L (10-53); ANION GAP 8 MEQ/L (5-15); AST (GOT) 25 U/L (15-37); BICARBONATE 26.8 MEQ/L (21.0-32.0); BLOOD UREA NITROGEN 11 MG/DL (7-18); CHLORIDE 104 MEQ/L (98-107); GLOMERULAR FILTRATION RATE 85 ML/MIN (>89); POTASSIUM 3.6 MEQ/L (3.5-5.1); SODIUM (NA) 139 MEQ/L (136-145); TOTAL BILIRUBIN ADULT 0.2 MG/DL (0.2-1.0)
--- NOTE | 2017-03-05 22:52 | EKG ---
Date Performed: 03/05/2017 Time Performed: 19:13:54 PTAGE: 26 years EKG: Sinus rhythm NORMAL ECG NO PREVIOUS TRACING DOCTOR: Chris Underwood Interpretating Date/Time 03/05/2017 22:52:12
== END 2017-03-05 23:48 | disposition home or self-care (01) ==
LOC: NEPD 17:47
DX: R51 Headache (principal); I10 Essential (primary) hypertension
CPT/HCPCS: 80053; 81001; 84703; 85025; 87086; 93005; 96361; 96374; 96375; 99284; J0780; J1200; J7030